=== PATIENT | female | born 1990 | race Caucasian/White ===

== ENCOUNTER 2017-02-23 04:33 | Emergency (ER) | payer MEDICAID, OTHER ==
[~2017-02-23] VITALS: Ht 165.1 cm; Wt 60.0 kg
[2017-02-23 04:39] VITALS: Ht 165.1 cm; Wt 60.0 kg
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
--- NOTE | 2017-02-23 05:22 | RADRPT ---
PROCEDURE: CT Brain without contrast. CLINICAL INDICATION: Head trauma TECHNIQUE: Axial images from the skull base through the vertex without IV contrast. Multiplanar r eformatted images were made. Images were reviewed on a PACS workstation. The CTDIvol is 45.01 mGy and the DLP is 720.23 mGycm. One or more of the following dose reduction techniques were used: auto mated exposure control, adjustment of the mA and/or kV according to patient size, or use of iterativ e reconstruction technique. COMPARISON: None. FINDINGS: The ventricles and cisterns are normal for age. There is no evidence for territorial infarction or intracranial hemorrhage. No mass or midline shift is seen. No extra-axial fluid collection is seen . The visualized paranasal sinuses and mastoids are clear. Small left frontal scalp hematoma is se en. No calvarial fracture is seen. IMPRESSION: Small left frontal scalp hematoma. Otherwise negative study. RPTAT: [facility] Physician Kendra Date Time Electronically viewed and signed by Physician Kendra on 02/23/2017 05:22 MARILYN/
[2017-02-23] MEDS ORDERED: traMADol 50 MG TAB PO ONE (05:30)
[2017-02-23] MEDS ORDERED: TRAM50TA2 PO (05:53)
[2017-02-23] MEDS ORDERED: ACET500C5 PO (05:53)
--- NOTE | 2017-02-23 06:01 | RADRPT ---
PROCEDURE: CT facial bones CLINICAL INDICATION: Trauma. Left face swelling. TECHNIQUE: Thin section spiral CT images through the facial bones without contrast. Multiplanar re constructions. The CTDIvol is 29.47 mGy and the DLP is 547.81 mGy-cm. One or more of the following dose reduction techniques were used: automated exposure control, adjustment of the mA and/or kV acc ording to patient size, or use of iterative reconstruction technique. COMPARISON: None. FINDINGS: Slight left frontal scalp soft tissue edema is again seen. The lenses of both eyes appear intact. There is heterogeneous artifact in the region of the vitreous of both eyes. Small amounts of intrao cular blood cannot be excluded due to the artifact. The globe morphology is unremarkable and no per iorbital soft tissue swelling is seen, however. No fractures are seen. There is minimal mucoperios teal thickening of the maxillary sinuses. IMPRESSION: No definite fracture. Left frontal scalp soft tissue contusion. Artifact over the globes which limits evaluation for intraocular hemorrhage. RPTAT: [facility] Physician Kendra Date Time Electronically viewed and signed by Physician Kendra on 02/23/2017 06:01 LE/
[2017-02-23 06:10] VITALS: BP 96/54; PULSE 82; RESP 18
== END 2017-02-23 06:15 | disposition home or self-care (01) ==
LOC: FTE 04:33
DX: S06.0X0A Concussion without loss of consciousness, initial encounter (principal); S00.03XA Contusion of scalp, initial encounter; F17.210 Nicotine dependence, cigarettes, uncomplicated; Y08.89XA Assault by other specified means, initial encounter
CPT/HCPCS: 70450; 70486; Z7610